=== PATIENT | female | born 1960 | race African-American/Black ===

== ENCOUNTER 2019-07-19 11:27 | Emergency (ER) | payer OTHER ==
--- NOTE | 2019-07-19 12:41 | ER Document Report ---
ED Medical Screen (RME) - General Chief Complaint: Fall Stated Complaint: FALL/LEG PAIN Time Seen by Provider: 07/19/19 12:26 Primary Care Provider: ROMERO MANN [Primary Care Provider] - Follow up as needed Mode of Arrival: Wheelchair Information source: Patient Notes: Patient states that yesterday she was at home and got lightheaded falling injuring her knees left ankle and right foot. Patient denies any chest pain or head injury. Patient does report chronic migraines and had a headache yesterday although denies headache pain at present. I have greeted and performed a rapid initial assessment of this patient. A comprehensive ED assessment and evaluation of the patient, analysis of test results and completion of the medical decision making process will be conducted by additional ED providers. - Related Data Allergies/Adverse Reactions: No Known Allergies Allergy (Verified 07/19/19 11:28) Physical Exam - Vital signs Vitals: Temp Pulse Resp BP Pulse Ox 98.1 F 74 16 103/68 97 07/19/19 11:40 07/19/19 11:40 07/19/19 11:40 07/19/19 11:40 07/19/19 11:40 - General Notes: Bilateral knee pain - Neurological Neuro grossly intact: Yes Cognition: Normal [place] Coma Scale Eye Opening: Spontaneous [place] Coma Scale Verbal: Oriented [place] Coma Scale Motor: Obeys Commands [place] Coma Scale Total: 15 Course - Vital Signs Vital signs: Temp Pulse Resp BP Pulse Ox 98.1 F 74 16 103/68 97 07/19/19 11:40 07/19/19 11:40 07/19/19 11:40 07/19/19 11:40 07/19/19 11:40 Doctor's Discharge - Discharge Referrals: ROMERO MANN [Primary Care Provider] - Follow up as needed
[2019-07-19 13:27] LABS: ABSOLUTE EOSINOPHILS # (AUTO) 0.2 10^3/uL (0.0-0.6); ABSOLUTE LYMPHOCYTES (AUTO) 1.1 10^3/uL (0.5-4.7); ABSOLUTE MONOCYTES (AUTO) 0.5 10^3/uL (0.1-1.4); ABSOLUTE NEUT (AUTO) 2.9 10^3/uL (1.7-8.2); BASOPHILS % (AUTO) 0.7 % (0-2); EOSINOPHILS % (AUTO) 3.4 % (0-6); HEMATOCRIT 31.8 % (36.0-47.0); HEMOGLOBIN 10.5 g/dL (12.0-15.5); LYMPHOCYTES % (AUTO) 23.7 % (13-45); MEAN CORPUSCULAR HEMOGLOBIN 28.6 pg (27.0-33.4); MEAN CORPUSCULAR HGB CONC 33.2 g/dL (32.0-36.0); MEAN CORPUSCULAR VOLUME 86 fl (80-97); MONOCYTES % (AUTO) 10.5 % (3-13); PLATELET COUNT 175 10^3/uL (150-450); RED BLOOD COUNT 3.69 10^6/uL (3.72-5.28); RED CELL DISTRIBUTION WIDTH 14.4 % (11.5-14.0); SEGMENTED NEUTROPHILS % (AUTO) 61.7 % (42-78); TOTAL CELLS COUNTED % (AUTO) 100 %; WHITE BLOOD COUNT 4.7 10^3/uL (4.0-10.5)
[2019-07-19 13:54] LABS: ALBUMIN 4.4 g/dL (3.5-5.0); ALKALINE PHOSPHATASE 87 U/L (38-126); ANION GAP 11 (5-19); ASPARTATE AMINO TRANSFERASE 25 U/L (14-36); BILIRUBIN,DIRECT 0.1 mg/dL (0.0-0.4); BILIRUBIN,TOTAL 0.7 mg/dL (0.2-1.3); BLOOD UREA NITROGEN 54 mg/dL (7-20); CALCIUM 9.7 mg/dL (8.4-10.2); CARBON DIOXIDE 27 mmol/L (22-30); CHLORIDE 103 mmol/L (98-107); GLUCOSE 101 mg/dL (75-110); POTASSIUM 3.9 mmol/L (3.6-5.0); TOTAL PROTEIN 7.5 g/dL (6.3-8.2)
--- NOTE | 2019-07-19 14:13 | RADIOLOGY REPORT (SQ) ---
EXAM DESCRIPTION: KNEE LEFT 4 VIEW COMPLETED DATE/TIME: 07/19/2019 2:00 pm REASON FOR STUDY: fall COMPARISON: None. NUMBER OF VIEWS: Four views. TECHNIQUE: AP, lateral, and both oblique radiographic images acquired of the left knee. LIMITATIONS: None. FINDINGS: MINERALIZATION: Normal. BONES: No acute fracture or dislocation. There is tricompartmental osteoarthrosis. JOINT: No effusion. SOFT TISSUES: No soft tissue swelling. The quadriceps and patellar tendon silhouettes are intact. OTHER: No other finding. IMPRESSION: No acute osseous abnormality of the left knee. TECHNICAL DOCUMENTATION: JOB ID: [id number] [employer]- All Rights Reserved Reading location - IP/workstation name: [email or web address]
--- NOTE | 2019-07-19 14:14 | RADIOLOGY REPORT (SQ) ---
EXAM DESCRIPTION: KNEE RIGHT 4 VIEWS COMPLETED DATE/TIME: 07/19/2019 2:00 pm REASON FOR STUDY: fall COMPARISON: None. NUMBER OF VIEWS: Four views. TECHNIQUE: AP, lateral, and both oblique radiographic images acquired of the right knee. LIMITATIONS: None. FINDINGS: MINERALIZATION: Normal. BONES: No acute fracture or dislocation. There is tricompartmental osteoarthrosis. JOINT: No effusion. SOFT TISSUES: No soft tissue swelling. The patellar and quadriceps tendon silhouettes are intact. OTHER: No other finding. IMPRESSION: No acute osseous abnormality of the right knee. TECHNICAL DOCUMENTATION: JOB ID: [id number] [employer]- All Rights Reserved Reading location - IP/workstation name: [email or web address]
--- NOTE | 2019-07-19 14:16 | RADIOLOGY REPORT (SQ) ---
EXAM DESCRIPTION: ANKLE LEFT COMPLETE COMPLETED DATE/TIME: 07/19/2019 2:00 pm REASON FOR STUDY: fall COMPARISON: None. NUMBER OF VIEWS: Three views. TECHNIQUE: AP, lateral, and oblique radiographic images acquired of the left ankle. LIMITATIONS: None. FINDINGS: MINERALIZATION: Normal. BONES: Acute nondisplaced spiral fracture of the distal fibula. The ankle mortise and talar dome are intact. JOINTS: Joint effusion present. SOFT TISSUES: Swelling and adjacent to the fracture. OTHER: No other finding. IMPRESSION: Acute nondisplaced spiral fracture of the distal fibula. TECHNICAL DOCUMENTATION: JOB ID: [id number] [employer]- All Rights Reserved Reading location - IP/workstation name: [email or web address]
--- NOTE | 2019-07-19 14:18 | RADIOLOGY REPORT (SQ) ---
EXAM DESCRIPTION: FOOT RIGHT COMPLETE COMPLETED DATE/TIME: 07/19/2019 2:00 pm REASON FOR STUDY: fall COMPARISON: None. NUMBER OF VIEWS: Three views. TECHNIQUE: AP, lateral and oblique radiographic images acquired of the right foot. LIMITATIONS: None. FINDINGS: MINERALIZATION: Normal. BONES: No acute fracture or dislocation. The tarsometatarsal alignment is preserved. JOINTS: Osteoarthrosis of the 1st MTP joint. SOFT TISSUES: No soft tissue swelling. OTHER: ORIF hardware in the midfoot. IMPRESSION: No acute osseous abnormality of the right foot. TECHNICAL DOCUMENTATION: JOB ID: [id number]- All Rights Reserved Reading location - IP/workstation name: [email or web address]
--- NOTE | 2019-07-19 18:13 | ER Document Report ---
ED Fall - General Chief Complaint: Fall Stated Complaint: FALL/LEG PAIN Time Seen by Provider: 07/19/19 12:26 Primary Care Provider: ROMERO MANN [NO LOCAL MD] - Follow up as needed OSIEL LY JR, DO [ACTIVE PROVISIONAL STAFF] - 07/22/19 8:00 am Mode of Arrival: Wheelchair Information source: Patient Notes: Pleasant 59-year-old female with hypertension on polypharmacy for headaches and pain management presents to the emergency department with chief complaint of a fall yesterday after being lightheaded. She injured her bilateral knees her left ankle and her right foot. Patient denies any acute shortness of breath or chest pain at the time, denies any heart palpitations, denies any severe headache but does have chronic migraines and she did recently have a medication change as she just moved back to [place] and her new neurologist would not prescribe her Fioricet which she was on for years. She was just recently changed to quetiapine and . Denies any diaphoresis, dyspnea on exertion, acute weakness. No other complaints - Related data Allergies/Adverse Reactions: No Known Allergies Allergy (Verified 07/19/19 11:28) Past Medical History - General Information source: Patient - Social History Smoking Status: Never Smoker Chew tobacco use (# tins/day): No Frequency of alcohol use: None Drug Abuse: None Family History: None Patient has suicidal ideation: No Patient has homicidal ideation: No Review of Systems - Review of Systems Constitutional: See HPI EENT: No symptoms reported, See HPI Cardiovascular: See HPI Respiratory: See HPI Gastrointestinal: See HPI Genitourinary: No symptoms reported Female Genitourinary: No symptoms reported Musculoskeletal: No symptoms reported Skin: No symptoms reported Hematologic/Lymphatic: No symptoms reported Neurological/Psychological: See HPI Physical Exam - Vital signs Vitals: Temp Pulse Resp BP Pulse Ox 98.1 F 74 16 103/68 97 07/19/19 11:40 07/19/19 11:40 07/19/19 11:40 07/19/19 11:40 07/19/19 11:40 - Notes Notes: PHYSICAL EXAMINATION: Reviewed vital signs and charting by RN GENERAL: Alert, interacts well. No acute distress. HEAD: Normocephalic, atraumatic. EYES: Pupils equal and round. Extraocular movements intact. ENT: Oral mucosa moist, tongue midline. NECK: Full range of motion. Trachea midline. LUNGS: Clear to auscultation bilaterally, no wheezes, rales, or rhonchi. No respiratory distress. HEART: Regular rate and rhythm. No murmur ABDOMEN: soft, non-tender. No distention. Bowel sounds present EXTREMITIES: Moves all 4 extremities spontaneously. No edema, No cyanosis. NEURO: A &O X 3, normal speech, normal gailt, PERRL, EOMI, SILT, follows commands in all 4 extremities, no gross abnormalities of cranial nerves, no focal neuro deficits, no pronator drift, [id number] testing normal, rapid alternating hand movements normal, [id number] normal, outside parts salesman strength 5/5 bilateral, 5/5 strength in both proximal and distal upper and lower extremities PSYCH: Normal affect, normal mood. SKIN: Warm, dry, normal turgor. No rashes or lesions noted. Course - Re-evaluation Re-evalutation: 07/19/19 18:29 Patient with a left distal fibula fracture nondisplaced and closed. Plan to place her in a posterior short leg splint and give her follow-up with Dr. Ly. EKG was normal and did not show any evidence of QT prolongation or ischemia or STEMI. Lab work show hemoglobin 10.5 the patient states that is good for her as she has anemia. Patient states that she does get frequent lightheadedness but she is typically in bed and is able to get her bearings prior to getting up and in this case she did not because she arose from the couch and had nothing to grab onto. At this time I do not have any concerns for a cardiac etiology. Stable for discharge - Vital Signs Vital signs: Temp Pulse Resp BP Pulse Ox 98.1 F 74 16 103/68 97 07/19/19 11:40 07/19/19 11:40 07/19/19 11:40 07/19/19 11:40 07/19/19 11:40 - Laboratory Result Diagrams: 07/19/19 13:04 07/19/19 13:04 Laboratory results interpreted by me: 07/19/19 07/19/19 13:04 13:04 RBC 3.69 L Hgb 10.5 L Hct 31.8 L RDW 14.4 H BUN 54 H Creatinine 1.62 H Est GFR ( Amer) 39 L Est GFR (MDRD) Non-Af 32 L Discharge - Discharge Clinical Impression: Closed left fibular fracture Qualifiers: Encounter type: initial encounter Fibula location: distal Fracture morphology: unspecified fracture morphology Qualified Code(s): S82.832A - Other fracture of upper and lower end of left fibula, initial encounter for closed fracture Condition: Good Disposition: HOME, SELF-CARE Instructions: Fracture of Distal Fibula ([facility]) Additional Instructions: You were seen for a fall and a fracture of your left fibula. Please follow-up with orthopedics on Monday morning and remain in the splint until you see orthopedics. We have given you information for Dr. Ly who is on-call. Referrals: LOCALMD,NO [NO LOCAL MD] - Follow up as needed OSIEL LY JR, [ACTIVE PROVISIONAL STAFF] - 07/22/19 8:00 am
[2019-07-19 20:05] VITALS: BP 139/77
--- NOTE | 2019-07-19 23:11 | EKG REPORT ---
SEVERITY:- ABNORMAL ECG - SINUS RHYTHM PROBABLE LEFT ATRIAL ABNORMALITY LEFT VENTRICULAR HYPERTROPHY : Confirmed by: Roma Kaplan MD 19-Jul-2019 23:10:24
== END 2019-07-19 19:45 | disposition home or self-care (01) ==
LOC: ER 11:27
DX: S82.444A Nondisplaced spiral fracture of shaft of right fibula, initial encounter for closed fracture (principal); W19.XXXA Unspecified fall, initial encounter; Y93.89 Activity, other specified; Y92.009 Unspecified place in unspecified non-institutional (private) residence as the place of occurrence of the external cause; D64.9 Anemia, unspecified; I10 Essential (primary) hypertension; R42 Dizziness and giddiness; R51 Headache; Z79.899 Other long term (current) drug therapy
CPT/HCPCS: 36415; 80053; 85025; 93005; 93010; 99284

== ENCOUNTER 2020-05-30 06:25 | Emergency (ER) | payer MEDICARE, OTHER ==
--- NOTE | 2020-05-30 07:25 | RADIOLOGY REPORT (SQ) ---
EXAM: X-ray knee four or more views, right CLINICAL DATA: 60-year-old female status post fall with right knee pain TECHNICAL DATA: Four x-ray views of the right knee were performed on 05/30/2020 at 6:50 AM. COMPARISONS: Previous right knee performed on 07/19/2019 FINDINGS: There is a comminuted, mildly depressed fracture along the lateral tibial plateau with an associated lipohemarthrosis in the suprapatellar compartment . The knee joint is otherwise intact. No additional fractures are identified. No pathologic lytic or sclerotic bone lesions are identified. The patellofemoral compartment is preserved. Bone mineralization is within normal limits. IMPRESSION: 1. Comminuted, mildly depressed fracture along the lateral tibial plateau with an associated lipohemarthrosis in the suprapatellar compartment. 2. No additional acute osseous abnormalities are identified.
--- NOTE | 2020-05-30 08:49 | RADIOLOGY REPORT (SQ) ---
EXAM DESCRIPTION: CT RT LOWER EXTREMITY WITHOUT IMAGES COMPLETED DATE/TIME: 05/30/2020 8:31 am REASON FOR STUDY: right knee swelling/pain COMPARISON: Radiographs from earlier. TECHNIQUE: Axial imaging performed through the right knee with reformatted coronal and sagittal imag ing windowed for bone and soft tissues. Images saved to PACS. 3D IMAGING: Were 3D images as MIP, SSD, or volume rendering performed at the work station? No. All CT scanners at this facility use dose modulation, iterative reconstruction, and/or weight based d osing when appropriate to reduce radiation dose to as low as reasonably achievable (ALARA). [facility]: Dose Right [facility]: CareDose [facility]: Dose Right [facility]: Teradose 4D [facility]: [employer] LIMITATIONS: None. RADIATION DOSE: CT Rad equipment meets quality standard of care and radiation dose reduction techniq ues were employed. CTDIvol: 4.1 mGy. DLP: 110 mGy-cm. mGy. FINDINGS: SOFT TISSUES: Sizable lipohemarthrosis with layering fluid density. BONES: Comminuted fracture lateral tibial plateau with greater than 1 cm central articular surface de pression. Other bones are intact. MINERALIZATION: Normal. OTHER: No other significant finding. IMPRESSION: 1. Comminuted depressed lateral tibial plateau fracture with significant articular surface step-off. Associated lipohemarthrosis. TECHNICAL DOCUMENTATION: JOB ID: [id number] Quality ID # [id number]: Final reports with documentation of one or more dose reduction techniques (e.g., Au tomated exposure control, adjustment of the mA and/or kV according to patient size, use of iterative reconstruction technique) 2010 [employer]- All Rights Reserved Reading location - IP/workstation name: [email or web address]
[2020-05-30] MEDS ORDERED: ONDANSETRON HCL INJ/PF 4 MG/2 ML SDV IV ONE (10:27)
[2020-05-30] MEDS ORDERED: HYDROMORPHONE HCL INJ/PF 2 MG/ML AMPULE IV ONE (10:27)
[2020-05-30] MEDS ORDERED: HYDROMORPHONE HCL INJ/PF 2 MG/ML AMPULE IV PRN (11:11)
--- NOTE | 2020-05-30 11:30 | ER Document Report ---
Entered by DAILY FOUNTAIN SCRIBE 05/30/20 0755 Acting as scribe for:DIANE GAYLE MD ED Extremity Problem, Lower - General Chief Complaint: Knee Injury Stated Complaint: RIGHT KNEE PAIN Time Seen by Provider: 05/30/20 06:34 Primary Care Provider: KEITH SEALS MD [Primary Care Provider] - Follow up as needed OSIEL WESTON JR, DO [ACTIVE PROVISIONAL STAFF] - Follow up as needed (Follow up in 2 weeks. call office to create an appointment date and time.) Information source: Patient Notes: This 60 year old female patient presents to the emergency department today with right knee pain. Patient states she was sharing her bed with her visiting niece and was sleeping on the edge of the bed. Patient states a balloon hitting her ceiling fan woke her up this morning and she slid off the bed while reaching for the string attached. Patient states she landed on her buttocks and did not hit her head or lose consciousness. Denies pain in her buttocks or neck. Patient states when getting up from the floor, she heard her right knee pop. Patient reports a history of fibromyalgia and chronic pain. Patient states she had a fast growth spurt and there is no cartilage in her knees, and often hears them pop. Patient also reports a recent compression fracture of her L2 vertebrae this month. - Related Data Allergies/Adverse Reactions: No Known Allergies Allergy (Verified 05/30/20 07:40) Past Medical History - General Information source: Patient - Social History Smoking Status: Never Smoker Cigarette use (# per day): No Chew tobacco use (# tins/day): No Frequency of alcohol use: None Drug Abuse: None Family History: None Patient has homicidal ideation: No GI Medical History: Reports: Hx Hiatal Hernia Musculoskeletal Medical History: Reports Hx Fibromyalgia, Reports Other - Compression fracture L2 vertebrae, L ankle stress fracture Past Surgical History: Reports: Hx Gastric Bypass Surgery, Hx Hysterectomy - partial, Hx Orthopedic Surgery - R foot, L foot, Hx Thyroid Surgery - Pa rathyroidectomy, Hx Umbilical Hernia - repair Review of Systems - Review of Systems Constitutional: No symptoms reported EENT: No symptoms reported Cardiovascular: No symptoms reported Respiratory: No symptoms reported Gastrointestinal: No symptoms reported Genitourinary: No symptoms reported Female Genitourinary: No symptoms reported Musculoskeletal: See HPI, Other - R knee pain. denies: Neck pain Skin: No symptoms reported Hematologic/Lymphatic: No symptoms reported Neurological/Psychological: See HPI. denies: Lost consciousness -: Yes All other systems reviewed and negative Physical Exam - Vital signs Vitals: Resp 14 05/30/20 06:25 - General General appearance: Appears well, Alert - HEENT Head: Normocephalic, Atraumatic Eyes: Normal Pupils: PERRL - Respiratory Respiratory status: No respiratory distress Chest status: Nontender Breath sounds: Normal Chest palpation: Normal - Cardiovascular Rhythm: Regular Heart sounds: Normal auscultation Murmur: No - Abdominal Inspection: Normal Distension: No distension Bowel sounds: Normal Tenderness: Nontender - Extremities General upper extremity: Normal inspection. No: Edema Notes: Swelling of the right anterior knee. Tenderness with palpation and pain with ROM. Right patella is not appreciated to be higher than the left. - Neurological Neuro grossly intact: Yes Cognition: Normal Orientation: AAOx4 Speech: Normal - Psychological Associated symptoms: Normal affect, Normal mood - Skin Skin Temperature: Warm Skin Moisture: Dry Skin Color: Normal Course - Re-evaluation Re-evalutation: 05/30/20 11:23 Patient resting comfortably. Patient still reports that pain medications still need to help control her knee pain at this time. 05/30/20 11:[address] Weston, orthopedic on-call who had a bedside examination the patient and reports that he is not taking patient to surgery at this time. The plan is to place her in a knee immobilizer and to follow-up with him in his clinic in 2 weeks. 05/30/20 11:29 Inasmuch as patient is on chronic pain medications I did not write any further additional narcotic medication patient's pain management of her right knee tibial plateau fracture. I advised patient to follow-up with her primary care or pain management doctor regarding her need if there is any necessity for increasing her medications. - Vital Signs Vital signs: Temp Pulse Resp BP Pulse Ox 98.5 F 12 161/92 H 99 05/30/20 08:00 05/30/20 11:01 05/30/20 11:01 05/30/20 11:01 05/30/20 11:24 Vital signs show systolic hypertension 161/92 otherwise vitals are stable. - Diagnostic Test Radiology reviewed: Image reviewed, Reports reviewed Radiology results interpreted by me: 05/30/20 11:24 Plain film x-rays right knee shows comminuted fracture of the lateral tibial plateau CT scan right knee shows comminuted fracture of the tibial plateau on the lateral side. Discharge - Discharge Clinical Impression: Closed fracture of right tibial plateau Condition: Stable Disposition: HOME, SELF-CARE Instructions: Use of Crutches ([facility]), Ice & Elevation ([facility]), Knee Immobilizing Splint ([facility]) Referrals: KEITH SEALS MD [Primary Care Provider] - Follow up as needed OSIEL WESTON JR, [ACTIVE PROVISIONAL STAFF] - Follow up as needed (Follow up in 2 weeks. call office to create an appointment date and time.) I personally performed the services described in the documentation, reviewed and edited the documentation which was dictated to the scribe in my presence, and it accurately records my words and actions.
--- NOTE | 2020-05-30 12:27 | PDOC CONSULTATION ---
Consultation Consult Date: 05/30/20 Provider Consulted: OSIEL LY JR History of Present Illness Admission Date/PCP: KEITH SEALS History of Present Illness: NEO OCONNELL is a 60 year old female with a history of multiple osteoporotic fractures including a recent fall resulting in a L2 compression fracture as well as a fall that she had seen before earlier this year for a left ankle fracture. The patient reports that she was sleeping at the edge of the bed as she was sharing it with a niece who was visiting. Unfortunately she ended up falling out of the bed onto the floor however she does not believe that she sustained an injury at that time. She was on her knees on the floor and was attempting to get up when she planted her right foot on the ground and felt a pop. At that time she had severe pain in the right knee and was unable to ambulate. Pain is described as aching in nature 6 out of 10 worse with motion improved with rest, improved with pain medication. Pain is localized to the right knee and not radiating to the hip or ankle. She denies any other associated injury, denies head injury or loss of consciousness. T she has a history of fibromyalgia and chronic pain and severe osteoporosis porosis as well as osteoarthritis of bilateral knees. Past Medical History GI Medical History: Reports: Hiatal Hernia Musculoskeltal Medical History: Reports: Fibromyalgia, Other - Compression fracture L2 vertebrae, L ankle stress fracture Past Surgical History Past Surgical History: Reports: Gastric Bypass Surgery, Hysterectomy - partial, Orthopedic Surgery - R foot, L foot Social History Smoking Status: Never Smoker Electronic Cigarette use?: No Family History Family History: None Parental Family History Reviewed: Yes Children Family History Reviewed: No Sibling(s) Family History Reviewed.: No Medication/Allergy Allergies/Adverse Reactions: No Known Allergies Allergy (Verified 05/30/20 07:40) Review of Systems Review of Systems: Constitutional: No symptoms reported EENT: No symptoms reported Cardiovascular: No symptoms reported Respiratory: No symptoms reported Gastrointestinal: No symptoms reported Genitourinary: No symptoms reported Female Genitourinary: No symptoms reported Musculoskeletal: See HPI, Other - R knee pain. denies: Neck pain Skin: No symptoms reported Hematologic/Lymphatic: No symptoms reported Neurological/Psychological: See HPI. denies: Lost consciousness -: Yes All other systems reviewed and negative Physical Exam Vital Signs: Temp Pulse Resp BP Pulse Ox 98.5 F 12 161/92 H 99 05/30/20 08:00 05/30/20 11:01 05/30/20 11:01 05/30/20 11:01 Intake & Output 05/29/20 05/30/20 05/31/20 06:59 06:59 06:59 Weight 86.183 kg Physical Exam: General appearance: PRESENT: no acute distress, cooperative, well-nourished Head exam: PRESENT: atraumatic, normocephalic Eye exam: PRESENT: EOMI Ear exam: PRESENT: normal external ear exam Mouth exam: PRESENT: neck supple Neck exam: ABSENT: tracheal deviation Respiratory exam: PRESENT: symmetrical, unlabored. ABSENT: accessory muscle use, wheezes Pulses: PRESENT: normal radial pulses, normal dorsalis pedis pulse Vascular exam: PRESENT: normal capillary refill GI/Abdominal exam: ABSENT: distended, firm. Neurological exam: PRESENT: alert, awake, oriented to person, oriented to place, oriented to time Psychiatric exam: PRESENT: appropriate affect. ABSENT: agitated Focused psych exam: ABSENT: catatonic Skin exam: PRESENT: intact. ABSENT: dry All as above aside from that noted in the HPI and the following: Right lower extremity -Pulses 2+ distally -Compartments soft -Sensation grossly intact to L3-4-5 S1 -Motor grossly intact to EHL TA gastroc and quad -Skin is intact, no overt swelling to the right knee, pain to palpation about the knee. Pain with any range of motion. Results Impressions: Knee X-Ray 05/30/20 00:00 IMPRESSION: 1. Comminuted, mildly depressed fracture along the lateral tibial plateau with an associated lipohemarthrosis in the suprapatellar compartment. 2. No additional acute osseous abnormalities are identified. Lower Extremity CT 05/30/20 07:28 IMPRESSION: 1. Comminuted depressed lateral tibial plateau fracture with significant articular surface step-off. Associated lipohemarthrosis. Assessment & Plan - Diagnosis (1) Closed fracture of right tibial plateau Is this a current diagnosis for this admission?: Yes Plan: I discussed the risks and benefits of different treatment options with the patient including operative intervention. She is minimally ambulatory at baseline. She had ongoing right knee pain prior to this event. Due to this as well as her multiple medical comorbidities I discussed nonoperative management with the patient. She understands that this may lead to severe posttraumatic knee arthritis or potential mechanical malalignment however she also understands the risks of surgery and that she already has arthritic type pain in the knee and spends most of her time in a chair throughout the day. -Patient may be placed in a well-padded knee immobilizer at this time to follow- up with me in my office -Pain control per ED -Nonweightbearing right lower extremity
[2020-05-30 12:39] VITALS: BP 167/95
== END 2020-05-30 12:38 | disposition home or self-care (01) ==
LOC: ER 06:25
DX: S82.141A Displaced bicondylar fracture of right tibia, initial encounter for closed fracture (principal); W06.XXXA Fall from bed, initial encounter; Y92.003 Bedroom of unspecified non-institutional (private) residence as the place of occurrence of the external cause; G89.29 Other chronic pain; M79.7 Fibromyalgia
CPT/HCPCS: 99284; 96374; 96375; 73564; 73700; J1170; J2405